=== PATIENT | male | born 1965 | race Caucasian/White ===

== ENCOUNTER 2016-05-05 14:25 | Emergency (ER) | payer OTHER ==
[~2016-05-05] VITALS: Ht 172.7 cm; Wt 78.5 kg
--- NOTE | 2016-05-05 16:05 | ED UPPER/LOWER EXTREMITY COMPL ---
History of Present Illness General Chief Complaint: Lower Extremity Problems Stated Complaint: KNEE PAIN Source: patient, old records Exam Limitations: no limitations Vital Signs & Intake/Output Vital Signs & Intake/Output Vital Signs Date Time Temp Pulse Resp B/P Pulse O2 O2 Flow FiO2 Ox Delivery Rate 05/05 1736 98.2 80 16 122/70 98 Room Air Room Air 05/05 1440 97.2 79 18 128/78 99 Room Air Allergies Coded Allergies: NO KNOWN ALLERGIES (05/03/11) Reconcile Medications Lactose-Reduced Food (Nutritional Drink) (Unknown Strength) LIQUID (Unknown Dose) PO DAILY SUPPLEMENT (Reported) Multivitamin (Multi-Day Vitamins) 1 EACH TABLET 1 TAB PO DAILY SUPPLEMENT ( Reported) Varenicline Tartrate (Chantix) 0.5 MG (11)-1 MG (42) TAB.DS.PK 1 TAB PO DAILY SMOKING CESSATION (Reported) Triage Note: C/O R KNEE PAIN AND SWELLING SINCE YESTERDAY. STATES HE HAS HAD PAIN AND SWELLING OFF AND ON FOR A FEW MONTHS, WAS RELIEVED BY EXERCISE. DENIES FALL OR INJURY. Triage Nurses Notes Reviewed? yes HPI: Patient is a 50 year old male presents complaining of right knee pain. Patient has had clicking in his right knee for a couple of months after twisting his right lower extremity. Pain fluctuating over the past couple of weeks, since yesterday pain has increased. Yesterday awoke with pain and swelling. This morning took Ibuprofen with mild improvement. Patient denies numbness, weakness , decreased range of motion, redness, fevers. (LINWOOD ALMONTE) Past History Travel History Traveled to [place] past 21 day No Medical History Any Pertinent Medical History? none Tetanus Vaccine: 05/03/11 Surgical History Surgical History: non-contributory Psychosocial History What is your primary language Yemeni Tobacco Use: Current Daily Use Daily Tobacco Use Amount/Type: => 5 Cigarettes daily ETOH Use: denies use Family History Hx Contributory? No (LINWOOD ALMONTE) Review of Systems Review of Systems Constitutional: Denies: chills, fever. EENTM: Reports: no symptoms. Respiratory: Denies: cough, short of breath. Cardiovascular: Denies: chest pain. Gastrointestinal/Abdominal: Denies: abdominal pain. Musculoskeletal: Reports: see HPI, joint swelling (RIGHT KNEE). Denies: back pain, neck pain. Skin: Denies: erythema. Neurological/Psychological: Denies: numbness, paresthesia. Hematologic/Endocrine: Denies: bruising, bleeding. Immunological: Denies: splenectomy. (LINWOOD ALMONTE) Physical Exam Physical Exam General Appearance: well developed/nourished, alert, awake Head: atraumatic, normal appearance Eyes: Bilateral: normal appearance, PERRL, EOMI. Ears, Nose, Throat: normal pharynx, normal ENT inspection, hearing grossly normal Neck: normal inspection, supple, full range of motion Cardiovascular/Respiratory: no respiratory distress Peripheral Pulses: 2+ popliteal (R) Back: normal inspection, normal range of motion Knee Right: JOINT EFFUSION PRESENT. mILD TENDERNESS LATERALLY AND INFERIORLY. fULL RANGE OF MOTION. nO WARMTH OR ERYTHEMA PRESENT. JOINT STABLE. nEGATIVE TRACEY'S, VARUS OR VALGUS STRESS TEST. Neurologic/Tendon: normal sensation, normal motor functions, normal tendon functions Skin: intact, normal color, warm/dry (LINWOOD ALMONTE) Progress Differential Diagnosis: fracture, sprain, septic joint, gout, meniscus injury, ligamentous injury Plan of Care: Orders Procedure Date/time Status XRY-KNEE COMPLETE RIGHT 05/05 1628 Active Results of the x-ray discussed with patient. Patient declined arthrocentesis. No signs of septic joint. Patient has an appointment with his primary care provider in 2 days. Appears stable for discharge. (LINWOOD ALMONTE) Diagnostic Imaging: Viewed by Me: Radiology Read. Discussed w/RAD: Radiology Read. Radiology Impression: PATIENT: TALIA HOLLIS PRESENT AGE: 50 PATIENT ACCOUNT NO: [id number] : 63 LOCATION: [facility] ORDERING PHYSICIAN: LINWOOD ARIZA SERVICE DATE: 05/05/16 EXAM TYPE: RAD - XRY-KNEE COMPLETE RIGHT EXAMINATION: XR KNEE, RIGHT CLINICAL INFORMATION: Right knee pain and swelling COMPARISON: None TECHNIQUE: Four views of the right knee. FINDINGS: Osseous alignment is anatomic. No acute fracture is seen. Joint spaces are maintained. A moderate to large effusion is present. IMPRESSION: Moderate to large effusion. No acute osseous findings. DICTATED BY: ZULEIKA AUSTIN MD DATE/TIME DICTATED:05/05/161710 [employer] OPERATOR:KIM DATE/TIME TRANSCRIBED:05/05/161710 CONFIDENTIAL, DO NOT COPY WITHOUT APPROPRIATE AUTHORIZATION. <Electronically signed in Other Vendor System> SIGNED BY: ZULEIKA AUSTIN MD 05/05/161715 (LINWOOD ALMONTE) Departure Departure Time of Disposition: 1727 Disposition: HOME OR SELF CARE Condition: Stable Clinical Impression Primary Impression: Knee effusion, right Referrals: UNKNOWN (PCP/Family) Additional Instructions: Follow-up with your primary care provider on as previously scheduled. Bring the results of your x-ray with you to your appointment. Continue taking the ibuprofen as directed. Departure Forms: Customer Survey General Discharge Information (LINWOOD ALMONTE) PA/DEPARTMENT OF MATHEMATICS CHAIR Co-Sign Statement Statement: ED Attending supervision documentation- [] I saw and evaluated the patient. I have also reviewed all the pertinent lab results and diagnostic results. I agree with the findings and the plan of care as documented in the PA's/DEPARTMENT OF MATHEMATICS CHAIR's documentation. x I have reviewed the ED Record and agree with the PA's/DEPARTMENT OF MATHEMATICS CHAIR's documentation. [] Additions or exceptions (if any) to the PAs/DEPARTMENT OF MATHEMATICS CHAIR's note and plan are summarized below: [] (ADAM GILES,ANNA)
[2016-05-05] MEDS ORDERED: CHANTIX1 EACH PO (17:09)
[2016-05-05] MEDS ORDERED: NUTRITIONAL DR237 ML PO (17:10)
[2016-05-05] MEDS ORDERED: MULTI-DAY VITA1 EACH PO (17:10)
--- NOTE | 2016-05-05 17:16 | RADIOLOGY REPORT ---
EXAMINATION: XR KNEE, RIGHT CLINICAL INFORMATION: Right knee pain and swelling COMPARISON: None TECHNIQUE: Four views of the right knee. FINDINGS: Osseous alignment is anatomic. No acute fracture is seen. Joint spaces are maintained. A moderate to large effusion is present. IMPRESSION: Moderate to large effusion. No acute osseous findings.
[2016-05-05 17:36] VITALS: BP 122/70
== END 2016-05-05 17:36 ==
LOC: ERH 14:25
DX: M25.461 Effusion, right knee (principal)
CPT/HCPCS: 73562-RT